=== PATIENT | female | born 1980 | race Asian ===

== ENCOUNTER → 2023-12-28 16:22 | Outpatient (REF) | payer OTHER, SELFPAY | LOC: WDC 16:22 | PROVIDERS: ATTENDING PHYSICIAN Nurse Practitioner Adult Health | DX: Z12.31 Encounter for screening mammogram for malignant neoplasm of breast (principal) | CPT/HCPCS: 77063; 77067 ==

== ENCOUNTER → 2025-01-14 19:41 | Outpatient (REF) | payer OTHER, SELFPAY | LOC: WDC 19:41 | PROVIDERS: ATTENDING PHYSICIAN Nurse Practitioner Adult Health | DX: Z12.31 Encounter for screening mammogram for malignant neoplasm of breast (principal) | CPT/HCPCS: 77063; 77067 ==